=== PATIENT | male | born 1955 | race Caucasian/White ===

== ENCOUNTER → 2023-12-22 17:27 | Outpatient (REF) | payer MEDICARE, BC, SELFPAY | LOC: MRI 3T 17:27 | PROVIDERS: ATTENDING PHYSICIAN Radiology Radiation Oncology; FAMILY PHYSICIAN Nurse Practitioner Family | DX: C61 Malignant neoplasm of prostate (principal) | CPT/HCPCS: 74183; A9575 ==

== ENCOUNTER 2025-06-17 01:28 | Emergency (ER) | payer MEDICARE, BC, SELFPAY ==
[2025-06-17 01:45] VITALS: BP 144/76
[2025-06-17 02:48] VITALS: BMI 28.0
[2025-06-17 02:53] VITALS: BP 146/76
[2025-06-17 04:41] VITALS: BP 129/76
[2025-06-17] MEDS: DELTASONE 50 MG PO (04:56)
[2025-06-17] MEDS: ZYRTEC 10 MG PO (04:56)
--- NOTE | 2025-06-17 06:38 | ED.GENMED ---
History of Present Illness
General
Chief Complaint: Allergic Reaction
Source: patient
Exam Limitations: none
Time Seen by Provider: 06/17/25 04:38
Nursing documentation reviewed up to this point in time: agreed with
History of Present Illness
History of Present Illness:
70-year-old male with a past medical history as noted significant for prostate cancer presents for evaluation of pruritus. Patient reports that 2 days ago he received an ADT injection as part of his prostate cancer treatment. He he says that the
next day he woke up with some generalized pruritus and that today he noticed that he was having hives. He says initially he became nervous that hives were getting worse and felt some mild shortness of breath and decided to come to the ER. Since
arrival in the ER he says hives have actually improved but and he no longer feels any shortness of breath. He denies any GI symptoms. He denies any swelling of the face or tongue. He denies any other acute complaints. He says he has had this
therapy before but has never had a similar reaction. No other new exposures noted. He has not taken any medications for symptoms.
Past History
Past History
ED Past Medical History: Other (AVR with Bovine valve, status post trigger finger surgery, status post hernia surgery)
Social History
Tobacco: Former smoker
Alcohol: Occasional
Personal: Single
Family History
Family History: CAD and Other (Alzheimer's)
Review of Systems
Review of Systems
All Other Systems: ROS reviewed and negative except as documented in HPI and ROS
Constitutional: Denies fever
Respiratory: Denies trouble breathing
Cardiac: Denies chest pain
ABD/GI: Denies abdominal pain, nausea or vomiting
: Denies flank pain
Musculoskeletal: Denies neck pain or back pain
Skin: Reports itching and rash
Neurological: Denies headache
Phy Exam
Physical Exam
Physical Exam:
General: Awake, alert, oriented x3; no acute distress
Head: Normocephalic, atraumatic
Eyes: Conjunctiva normal, EOMI
Throat: Airway intact, handling secretions, no swelling of the tongue or lips
Neck: Trachea midline, supple without meningismus
Lungs: Clear to auscultation bilaterally, no wheezing, rales, rhonchi
Heart: Regular rate and rhythm, no murmurs, gallops, or rubs
Neuro: Grossly intact
Skin: Patient has very few scattered hives a few noted on his buttock, some on the inner thighs and occasionally on the upper extremities
Extremities: Warm and well-perfused
Scores
Heart Failure Risk
Heart Failure Risk Score: Not Applicable
Heart Score for Chest Pain Patients
STEMI patient?: Not applicable
Withdrawal Assessment of Alcohol
Withdrawal Assessment Completed?: Not applicable
Course
Orders/Labs/Results
Orders:
Orders
06/17/25 04:51
Cetirizine HCl [Zyrtec] 10 mg PO NOW STA
Prednisone [Deltasone] 50 mg PO NOW STA
Vital Signs
Initial and Last Documented VS:
Initial Vital Signs
Temp Pulse Resp BP Pulse Ox
37.2 C 82 16 144/76 99
06/17/25 01:45 06/17/25 01:45 06/17/25 01:45 06/17/25 01:45 06/17/25 01:45
Last Documented Vital Signs
Temp Pulse Resp BP Pulse Ox
37.2 C 76 18 129/76 98
06/17/25 01:45 06/17/25 04:41 06/17/25 04:41 06/17/25 04:41 06/17/25 04:41
MDM/Problems Addressed
Differential Diagnosis Includes:
Hypersensitivity reaction, idiopathic urticaria, anaphylaxis/allergy
MDM/Problems Addressed:
70-year-old male presents with hives/pruritus after recent injection for prostate cancer. Vitals and exam as above. Nothing to suggest anaphylaxis. He has a few scattered hives. He says symptoms are actually improving. Will trial steroids and
antihistamines. Advised to discuss with his oncologist further care with this medication given cutaneous reaction. He is comfortable with this plan. All questions answered.
*Pulse Oximetry
SaO2: 98
Oxygen Mode of Delivery: Room air
Patient hypoxic: no (98%)
*Critical Care Note
Total Time (30-74mins, 75-104mins- exclusive of procedures): Not Applicable
Data Reviewed
Source: patient and records
ED Attending Note
-
Portions of this chart may have been created with voice recognition software.� Occasional wrong word or��sound alike� substitutions may have occurred due to the inherent limitations of voice recognition software.
Discharge Plan
Departure
Patient Disposition: Home (Routine Discharge)
Date of Disposition: 06/17/25
Time of Disposition: 04:51
Patient with high blood pressure during this ER visit?: No
Discharge Problem:
Hives
Instructions: Hives (DC)
Prescriptions:
New
cetirizine [Zyrtec] 10 mg tablet
10 mg PO DAILY PRN (Reason: allergy symptoms) Qty: 10 0RF
prednisone 50 mg tablet
50 mg PO DAILY Qty: 5 0RF
No Action
amlodipine 5 mg Tablet
5 mg PO DAILY
atorvastatin 20 mg Tablet
20 mg PO DAILY
valsartan 40 mg Tablet
80 mg PO BID
Eligard (3 month) 22.5 mg Syringe
22.5 mg SC [id number]
tamsulosin 0.4 mg Capsule
0.4 mg PO HS
Activity Restrictions/Additional Instructions:
Thank you for visiting the Emergency Department at [facility].
1. Please schedule a follow up appointment as directed. Call first thing tomorrow morning to make an appointment.
2. If indicated, please take your medications as instructed and indicated on discharge paperwork.
3. If any of your symptoms do not improve, or persist, or become more severe within 6-12 hours, please return to the emergency department for further care.
4. Please return to the emergency department if you develop a headache, neck pain/stiffness, fever greater than 100.4F, chest pain, shortness of breath, persistent nausea, vomiting, slurred speech, difficulty walking, numbness/tingling, weakness,
signs of infection or any other symptoms that are worrisome to you.
Please call [phone] if you have any questions.
Interventions
Interventions:
*Risk Screen - Suicide Last Done: 06/17/25 01:45
*General Assessment Last Done: 06/17/25 02:49
*Neglect/Abuse Screening Last Done: 06/17/25 02:49
*ED- Fall Risk Assessment Last Done: 06/17/25 02:49
*ED COVID-19 Vaccine History Last Done: 06/17/25 02:49
*Nursing Disposition Last Done: 06/17/25 04:59
ED- Cardiac Assessment Last Done: 06/17/25 02:54
ED- Pulmonary Assessment Last Done: 06/17/25 02:54
ED-Skin Assessment Last Done: 06/17/25 02:54
Discharge Date and Time
Discharge Date/Time: 06/17/25 05:11
Print Language: ARGENTINE
== END 2025-06-17 05:11 | disposition home or self-care (01) ==
LOC: EMR 01:28
PROVIDERS: EMERGENCY PHYSICIAN Emergency Medicine
DX: L50.9 Urticaria, unspecified (principal); T38.6X5A Adverse effect of antigonadotrophins, antiestrogens, antiandrogens, not elsewhere classified, initial encounter; C61 Malignant neoplasm of prostate; Z95.2 Presence of prosthetic heart valve; Z87.891 Personal history of nicotine dependence
CPT/HCPCS: 99283